=== PATIENT | male | born 1995 | race Caucasian/White ===

== ENCOUNTER 2021-02-18 16:56 | Emergency (ER) | payer OTHER ==
[~2021-02-18] VITALS: Ht 177.8 cm; Wt 79.5 kg
[2021-02-18] MEDS ORDERED: KETOROLAC 60MG 2ML VIAL IM ONE (18:20)
--- NOTE | 2021-02-18 18:45 | REP ---
INDICATION: trauma. COMPARISON: None. TECHNIQUE: Five views. FINDINGS: Five views of the left knee demonstrate normal bones, joints, and soft tissues. No fracture or subluxation is seen. No opaque foreign body noted. IMPRESSION: Negative left knee series. <Electronically signed by Danie Tellez > 02/18/21 [id number]
--- NOTE | 2021-02-18 18:46 | REP ---
INDICATION: trauma. COMPARISON: None. TECHNIQUE: Four views of the left calf are provided. FINDINGS: Four views of the left tib fib demonstrate normal bones, joints, and soft tissues. No fracture or subluxation is seen. No opaque foreign body noted. IMPRESSION: Negative left tib fib series. <Electronically signed by Danie Tellez > 02/18/21 [id number]
--- NOTE | 2021-02-18 18:47 | REP ---
INDICATION: trauma. COMPARISON: None. TECHNIQUE: Four views of the left ankle are provided. FINDINGS: Ankle mortise is intact. No fracture or subluxation is seen. Periarticular soft tissues are unremarkable. IMPRESSION: No fracture or subluxation seen. <Electronically signed by Danie Tellez > 02/18/21 [id number]
[2021-02-18 19:09] VITALS: BP 136/92
== END 2021-02-18 19:28 | disposition home or self-care (01) ==
LOC: M ED 16:56
DX: M25.562 Pain in left knee (principal)
CPT/HCPCS: 73564; 73590; 73610; 96372; 99284; J1885